=== PATIENT | female | born 1965 | race Caucasian/White ===

== ENCOUNTER 2016-12-13 20:00 | Emergency (ER) | payer OTHER ==
[~2016-12-13] VITALS: Ht 167.6 cm; Wt 158.8 kg
[2016-12-13] MEDS ORDERED: cloNIDine HCL 0.1 MG TAB ONE (20:12)
[2016-12-13] MEDS ORDERED: cloNIDine HCL 0.1 MG TAB PO ONE (20:30)
[2016-12-13] MEDS ORDERED: cefTRIAXone 1GM/50ML D5W 50 ML IV ONE (21:15)
[2016-12-13] MEDS ORDERED: VANCOMYCIN 1GM/250ML D5W 250 ML IV ONE (21:15)
[2016-12-13 21:29] LABS: Basophils # (auto) 0.1 uL; Basophils % (auto) 0.5 % (0.0-2.0); Eosinophils # (auto) 0.1 uL; Eosinophils % (auto) 1.2 % (0.0-7.0); Hematocrit 34.4 % (36.0-46.0); Hemoglobin 11.6 g/dL (12.2-16.2); Lymphocytes # (auto) 1.8 uL; Lymphocytes % (auto) 16.5 % (10.0-50.0); Mean Corpuscular Hemoglobin 29.9 pg (28.0-32.0); Mean Corpuscular Hgb Conc. 33.7 g/dL (32.0-36.0); Mean Corpuscular Volume 88.7 fL (80.0-100.0); Monocytes % (auto) 9.4 % (0.0-12.0); Neutrophils % (auto) 72.4 % (37.0-80.0); Platelet Count (auto) 330 10^3/uL (140-450); Red Cell Distribution Width 14.3 % (11.8-14.3)
[2016-12-13 21:52] LABS: Albumin 3.4 g/dL (3.4-5.0); BUN/Creatinine Ratio 17.3; Bilirubin, Total 1.2 mg/dL (0.2-1.0); Calcium 8.6 mg/dL (8.5-10.1); Potassium 3.3 mmol/L (3.5-5.1); Total Protein 7.9 g/dL (6.4-8.2)
[2016-12-13 21:59] LABS: B-Type Natriuretic Peptide 37.5 pg/mL (0-100)
[2016-12-13 22:41] VITALS: BP 126/61
[2016-12-13 23:19] LABS: Urine Bilirubin Negative (Negative); Urine Blood 2+ /uL (Negative); Urine Color Yellow (Yellow); Urine Glucose Normal (Normal); Urine Ketone Negative (Negative); Urine Mucus FEW (None Seen); Urine Nitrite Negative (Negative); Urine RBC 10 /hpf (0 - 4); Urine Squamous Epithelial Cell FEW /hpf (<5); Urine Urobilinogen Normal (Negative); Urine pH 5.5 (5.0-8.0)
== END 2016-12-14 00:12 | disposition home or self-care (01) ==
LOC: ER 20:00
DX: L03.116 Cellulitis of left lower limb (principal); N39.0 Urinary tract infection, site not specified; M79.89 Other specified soft tissue disorders; I10 Essential (primary) hypertension
CPT/HCPCS: 36415; 73590; 80053; 81001; 83880; 84484; 85025; 87040; 96365; 96366; 96367; 99285; J0696; J3370

== ENCOUNTER 2017-02-16 15:13 | Emergency (ER) | payer OTHER ==
[~2017-02-16] VITALS: Ht 172.7 cm; Wt 158.8 kg
[2017-02-16] MEDS ORDERED: KETOROLAC TROMETH 30 MG/ML 1ML VIAL IV ONE (16:15)
[2017-02-16 16:21] LABS: Basophils # (auto) 0 uL; Basophils % (auto) 0.6 % (0.0-2.0); Eosinophils # (auto) 0.2 uL; Eosinophils % (auto) 2.8 % (0.0-7.0); Hemoglobin 12.5 g/dL (12.2-16.2); Lymphocytes # (auto) 1.9 uL; Lymphocytes % (auto) 27.7 % (10.0-50.0); Mean Corpuscular Hemoglobin 29.5 pg (28.0-32.0); Mean Corpuscular Hgb Conc. 33.6 g/dL (32.0-36.0); Mean Corpuscular Volume 87.6 fL (80.0-100.0); Mean Platelet Volume 7.1 fL (6.9-10.8); Monocytes # (auto) 0.8 uL; Monocytes % (auto) 11.3 % (0.0-12.0); Neutrophils # (auto) 3.9 uL; Neutrophils % (auto) 57.6 % (37.0-80.0); Nucleated Red Blood Cells % 0.1 %; Platelet Count (auto) 329 10^3/uL (140-450); Red Cell Distribution Width 14.9 % (11.8-14.3); White Blood Cell 6.8 10^3/uL (4.4-10.8)
[2017-02-16 16:42] LABS: Albumin 3.5 g/dL (3.4-5.0); BUN/Creatinine Ratio 14.1; Bilirubin, Total 0.8 mg/dL (0.2-1.0); Calcium 8.8 mg/dL (8.5-10.1); Potassium 3.6 mmol/L (3.5-5.1); Total Protein 8.3 g/dL (6.4-8.2)
[2017-02-16] MEDS ORDERED: ENOXAPARIN SOD 100 MG/1 ML SYRINGE SC ONE (17:15)
[2017-02-16 20:40] VITALS: BP 150/106
== END 2017-02-16 20:48 | disposition short-term general hospital (02) ==
LOC: ER 15:13
DX: I82.402 Acute embolism and thrombosis of unspecified deep veins of left lower extremity (principal); I10 Essential (primary) hypertension
CPT/HCPCS: 36415; 80053; 85025; 85379; 93971; 96372; 96374; 99285; J1650; J1885

== ENCOUNTER 2017-03-04 04:33 | Emergency (ER) | payer OTHER ==
[~2017-03-04] VITALS: Ht 167.6 cm; Wt 158.8 kg
[2017-03-04 05:47] LABS: Basophils # (auto) 0.1 uL; Basophils % (auto) 0.4 % (0.0-2.0); Eosinophils # (auto) 0.1 uL; Hemoglobin 12.2 g/dL (12.2-16.2)
[2017-03-04 05:58] LABS: Hematocrit 36.6 % (36.0-46.0); Lymphocytes # (auto) 1.2 uL; Mean Corpuscular Hemoglobin 28.8 pg (28.0-32.0); Mean Corpuscular Hgb Conc. 33.2 g/dL (32.0-36.0); Mean Corpuscular Volume 86.6 fL (80.0-100.0); Mean Platelet Volume 6.8 fL (6.9-10.8); Monocytes # (auto) 0.9 uL; Monocytes % (auto) 6.6 % (0.0-12.0); Platelet Count (auto) 449 10^3/uL (140-450); Red Cell Distribution Width 14.7 % (11.8-14.3); White Blood Cell 13.2 10^3/uL (4.4-10.8)
[2017-03-04 05:59] LABS: INR 1.05 (0.9-1.15); Partial Thromboplastin Time 31.8 sec (22.64-33.71); Prothrombin Time 11.5 sec (9.37-12.3)
[2017-03-04 06:25] LABS: Calcium 8.8 mg/dL (8.5-10.1); Potassium 3.8 mmol/L (3.5-5.1)
[2017-03-04 06:38] LABS: Albumin 3.6 g/dL (3.4-5.0); BUN/Creatinine Ratio 11.5; Bilirubin, Total 0.7 mg/dL (0.2-1.0); Total Protein 8.5 g/dL (6.4-8.2)
[2017-03-04 10:30] VITALS: BP 117/57
== END 2017-03-04 11:06 | disposition home or self-care (01) ==
LOC: ER 04:36
DX: L03.116 Cellulitis of left lower limb (principal); D72.829 Elevated white blood cell count, unspecified; I10 Essential (primary) hypertension
CPT/HCPCS: 36415; 71010; 80053; 85025; 85379; 85610; 85730; 93005; 93971

== ENCOUNTER 2019-01-09 15:40 | Emergency (ER) | payer OTHER ==
[~2019-01-09] VITALS: Ht 167.6 cm; Wt 126.1 kg
[2019-01-09 16:11] LABS: Basophils # (auto) 0 uL; Basophils % (auto) 0.6 % (0.0-2.0); Eosinophils # (auto) 0.2 uL; Eosinophils % (auto) 2.5 % (0.0-7.0); Hemoglobin 12.6 g/dL (12.2-16.2); Lymphocytes # (auto) 1.9 uL; Lymphocytes % (auto) 31.9 % (10.0-50.0); Mean Corpuscular Hemoglobin 30.4 pg (28.0-32.0); Mean Corpuscular Hgb Conc. 33.3 g/dL (32.0-36.0); Mean Corpuscular Volume 91.4 fL (80.0-100.0); Monocytes # (auto) 0.7 uL; Monocytes % (auto) 11.4 % (0.0-12.0); Neutrophils # (auto) 3.3 uL; Neutrophils % (auto) 53.6 % (37.0-80.0); Nucleated Red Blood Cells % 0.2 %; Platelet Count (auto) 342 10^3/uL (140-450); Red Blood Cells 4.16 10^6/uL (4.0-5.20); Red Cell Distribution Width 13.9 % (11.8-14.3); White Blood Cell 6.1 10^3/uL (4.4-10.8)
[2019-01-09 16:16] LABS: Urine Bacteria FEW /hpf (None Seen); Urine Blood TRACE /uL (Negative); Urine Hyaline Cast FEW /lpf (0 - 2); Urine Mucus FEW (None Seen); Urine Specific Gravity 1.032 (1.001-1.035); Urine WBC 14 /hpf (0 - 5)
[2019-01-09 16:25] LABS: INR 1.1 (0.9-1.15); Partial Thromboplastin Time 26.2 sec (23.64-32.05)
[2019-01-09 16:37] LABS: Albumin 3.5 g/dL (3.4-5.0); BUN/Creatinine Ratio 21.3; Bilirubin, Total 1.2 mg/dL (0.2-1.0); Calcium 8.7 mg/dL (8.5-10.1); Potassium 3.5 mmol/L (3.5-5.1); Total Protein 7.9 g/dL (6.4-8.2)
[2019-01-09] MEDS ORDERED: IOHEXOL 350 MG/ML 100ML IJ ONE (18:04)
[2019-01-09] MEDS ORDERED: cefTRIAXone 1GM/50ML D5W 50 ML IV ONE (19:30)
[2019-01-09 21:09] VITALS: BP 155/45
== END 2019-01-09 21:30 | disposition home or self-care (01) ==
LOC: ER 15:40
DX: L03.116 Cellulitis of left lower limb (principal); N39.0 Urinary tract infection, site not specified; R89.1 Abnormal level of hormones in specimens from other organs, systems and tissues; I10 Essential (primary) hypertension
CPT/HCPCS: 36415; 71275; 80053; 81001; 83735; 83880; 84443; 84484; 85025; 85379; 85610; 85730; 87040; 93005; 93971; 94761; 96365; 99284; J0696; Q9967

== ENCOUNTER 2021-11-02 12:55 | Emergency (ER) | payer BC, OTHER ==
[~2021-11-02] VITALS: Ht 167.6 cm; Wt 150.0 kg
[2021-11-02] MEDS ORDERED: PROMETHAZINE HCL 25 MG/ML 1ML IM ONE (17:15)
[2021-11-02] MEDS ORDERED: MEPERIDINE HCL (50 MG/ML) 1 ML VIAL IM ONE (17:15)
[2021-11-02 17:24] VITALS: BP 138/72
[2021-11-02] MEDS ORDERED: PRED20TA2 PO (17:29)
[2021-11-02] MEDS ORDERED: TRAM-297 PO (17:29)
== END 2021-11-02 17:38 | disposition home or self-care (01) ==
LOC: ER 12:55
DX: M51.16 Intervertebral disc disorders with radiculopathy, lumbar region (principal); N20.0 Calculus of kidney; E66.01 Morbid (severe) obesity due to excess calories; E11.9 Type 2 diabetes mellitus without complications; I10 Essential (primary) hypertension; Z68.43 Body mass index [BMI] 50.0-59.9, adult
CPT/HCPCS: 72131; 93971; 96372; 99284; J2175; J2550